=== PATIENT | female | born 1990 | race Caucasian/White ===

== ENCOUNTER 2018-02-26 09:57 | Inpatient (IN) | payer OTHER ==
[2018-02-22 12:49] VITALS: BMI 25.7
[2018-02-26] MEDS ORDERED: ceFAZolin IN SWFI 2 GM/20 ML SYRINGE IVP ONE (10:23)
[2018-02-26] MEDS ORDERED: CITRIC ACID-SODIUM CITRATE 15 ML CUP PO ONE (10:23)
--- NOTE | 2018-02-26 10:31 | P.HPOB ---
History of Present Illness H&P Date: 02/26/18 Chief Complaint: 39-3/7 weeks, previous section declining The patient is a 27-year-old 2 para 1001 admitted at 39-3/7 weeks as established by early ultrasound. She is admitted for repeat low transverse section having undergone a primary low-transverse section for arrest of dilation and descent. She had early care through practice at [facility] and transferred care to our office beginning at approximately 34 weeks with no care between. She has been found to be rubella nonimmune. She also carries a history of narcotic abuse for which she is on chronic maintenance Suboxone therapy. She also has a history of herpes simplex and did begin prophylaxis at 36 weeks. Group B strep status is negative. Obstetrical history: 2 para 1001 with current statistics listed in history of present illness. EDC of 03/02/2018 was established by ultrasound performed through [facility]. Laboratory workup demonstrates a blood type of O+ with a negative antibody screen. Rubella status is nonimmune. The remainder of the laboratory workup was within normal limits. Glucola was within normal limits and group B strep status is negative. Gynecologic history: Unremarkable with no history of any infections to include STDs aside from the aforementioned history of herpes simplex for which she has had no outbreaks during the and has been on maintenance since 36 weeks with Valtrex. Review of Systems Review of systems is confined to history of present illness. Past Medical History Past Medical History: No Reported History History of Any Multi-Drug Resistant Organisms: None Reported Past Surgical History: Section, Tonsillectomy Past Anesthesia/Blood Transfusion Reactions: No Reported Reaction Smoking Status: Current every day smoker - Past Family History Mother Family Medical History: Cancer Additional Family Medical History / Comment(s): BREAST Medications and Allergies Home Medications Medication Instructions Recorded Confirmed Type Buprenorphine HCl/Naloxone HCl 1 film SL DAILY 02/26/18 02/26/18 History [Suboxone 4 mg-1 mg Sl Film] Pnv No.95/Ferrous Fum/Folic AC 1 tab PO DAILY 02/26/18 02/26/18 History [ Multivitamin Tablet] Allergies Allergy/AdvReac Type Severity Reaction Status Date / Time No Known Allergies Allergy Verified 02/26/18 10:15 Exam In general, this is a well-developed, well-nourished white female in no acute distress. Her heart has a regular rhythm and rate without murmur. Her lungs are clear to auscultation bilaterally in all boggs. Her abdomen is gravid, nondistended, has normal active bowel sounds, is soft, nontender, and without any palpable masses aside from uterine fundus. Her extremities are without any cyanosis, clubbing, or edema and are nontender to palpation bilaterally. Digital cervical examination is deferred. Assessment and Plan (1) Previous section Current Visit: Yes Status: Acute Code(s): Z98.891 - HISTORY OF UTERINE SCAR FROM PREVIOUS SURGERY SNOMED Code(s): 382481389 Plan: The patient is admitted for repeat low transverse section. The risks and complications of the procedure have been thoroughly discussed and she has agreed to proceed. She has also been counseled regarding the possible and probable long-term observation of the for potential narcotic withdrawal.
[2018-02-26] MEDS: LACTATED RINGERS 1,000 ML IV SCH ×3 (10:52→23:20)
[2018-02-26 10:59] LABS: Basophils # (A) 0.1 k/uL (0-0.2); Basophils % (A) 0 %; Eosinophils # (A) 0.3 k/uL (0-0.7); Eosinophils % (A) 2 %; HCT 40.1 % (34.0-46.0); Lymphocytes # (A) 2.3 k/uL (1.0-4.8); Lymphocytes % (A) 17 %; MCH 29.7 pg (25.0-35.0); MCHC 32.4 g/dL (31.0-37.0); MCV 91.7 fL (80.0-100.0); Mean Platelet Volume 8.9; Monocytes # (A) 0.5 k/uL (0-1.0); Monocytes % (A) 4 %; Neutrophils # (A) 10.3 k/uL (1.3-7.7); Neutrophils % (A) 75 %; Platelet Count 190 k/uL (150-450); RBC 4.38 m/uL (3.80-5.40); RDW 13.7 % (11.5-15.5); WBC 13.8 k/uL (3.8-10.6)
[2018-02-26] MEDS ORDERED: PROPOFOL 10 MG/ML 20 ML VIAL IV ONE (11:04)
[2018-02-26] MEDS ORDERED: ONDANSETRON 4 MG/2 ML VIAL ONE (11:04)
[2018-02-26] MEDS ORDERED: MORPHINE SULFATE (PF) 0.3 MG/0.3 ML SYR ONE (11:04)
[2018-02-26] MEDS ORDERED: OXYTOCIN 10 UNIT/ML 1 ML VIAL ONE (11:04)
[2018-02-26] MEDS ORDERED: KETOROLAC 30 MG/ML 1 ML VIAL ONE (11:04)
[2018-02-26] MEDS ORDERED: fentaNYL (PF) 50 MCG/ML 2 ML AMP ONE (11:04)
[2018-02-26] MEDS ORDERED: SUCCINYLCHOLINE CHLORIDE 100 MG/5 ML SYR IV ONE (11:04)
[2018-02-26 11:26] LABS: Amphetamine Screen,Urine Not Detected (NotDetected); Barbiturate Screen,Urine Not Detected (NotDetected); Benzodiazepines Screen,Urine Not Detected (NotDetected); Cocaine Screen,Urine Not Detected (NotDetected); Methadone Screen, Urine Not Detected (NotDetected); Opiate Screen,Urine Not Detected (NotDetected); Oxycodone Screen, Urine Not Detected (NotDetected); Phencyclidine Screen,Urine Not Detected (NotDetected); Tricyclic Antidepressant,Urine Not Detected (NotDetected); Urn Cannabinoid Scrn Not Detected (NotDetected)
[2018-02-26] MEDS ORDERED: NALOXONE 0.4 MG/ML 1 ML VIAL IV PRN (11:58)
[2018-02-26] MEDS ORDERED: METOCLOPRAMIDE 5 MG/ML 2 ML VIAL IVP PRN (11:58)
[2018-02-26] MEDS ORDERED: ONDANSETRON 4 MG/2 ML VIAL IVP PRN (11:58)
[2018-02-26] MEDS ORDERED: ZOLPIDEM 5 MG TAB PO PRN (11:58)
[2018-02-26] MEDS ORDERED: ACETAMINOPHEN TAB 325 MG TAB PO PRN ×2 (11:58→12:01)
[2018-02-26] MEDS ORDERED: ACETAMINOPHEN IV (For NPO) 1,000 MG in EMPTY BAG 1 BAG IVPB PRN (11:58)
[2018-02-26] MEDS ORDERED: diphenhydrAMINE 50 MG/ML 1 ML VIAL IVP PRN ×2 (11:58)
[2018-02-26] MEDS ORDERED: diphenhydrAMINE 25 MG CAP PO PRN (11:58)
[2018-02-26] MEDS ORDERED: diphenhydrAMINE 50 MG CAP PO PRN (11:58)
[2018-02-26] MEDS ORDERED: LANOLIN CREAM 5 GM TUBE TOPICAL PRN (12:01)
[2018-02-26] MEDS ORDERED: KETOROLAC 30 MG/ML 1 ML VIAL IVP PRN (12:01)
[2018-02-26] MEDS ORDERED: MEASLES-MUMPS-RUBELLA VACC/PF 12,500 UNIT/0.5 ML VIAL SQ ONE (12:01)
[2018-02-26] MEDS ORDERED: SIMETHICONE 80 MG CHEWABLE PO PRN (12:01)
[2018-02-26] MEDS ORDERED: traMADol 50 MG TAB PO PRN (12:04)
--- NOTE | 2018-02-26 12:11 | P.OP ---
Date of Procedure: 02/26/18 Preoperative Diagnosis: #1. 39-3/7 weeks intrauterine , previous section, declining vaginal trial of labor #2. Rubella nonimmune #3. History of narcotic use, on Suboxone Postoperative Diagnosis: Same Procedure(s) Performed: #1. Repeat low transverse section Anesthesia: GETA (Following a failed spinal anesthetic.) Surgeon: Oscar Levy Cake Maker #1: Edna Munguia Estimated Blood Loss (ml): 800 IV fluids (ml): 1,400 Urine output (ml): 100 Pathology: other (Placenta) Condition: stable Disposition: floor Operative Findings: The patient was taken the operating room where she was delivered of a viable 8 lbs. 7 oz. baby girl with Apgars of 8 at 1 minute and 9 at 5 minutes delivered in the direct occiput anterior position. The placenta was delivered manually, intact, and grossly normal with a grossly normal three-vessel cord. The uterus , tubes, and ovaries were entirely normal to inspection. Description of Procedure: The patient was prepped and draped in usual fashion after spinal anesthesia was administered by the anesthesiologist. The spinal anesthetic failed to provide adequate analgesia and the patient was then set up for general endotracheal anesthesia. Once the anesthesia had been established, a Pfannenstiel incision was made through pre-existing scar and extended into the abdominal cavity without difficulty. The bladder peritoneum was elevated, incised, and reflected distally as it did been previously performed at her previous section. A 2 cm incision was made in the transverse plane of the lower uterine segment to enter the uterus at which time clear fluid was noted. The incision was extended in both directions using the bandage scissors. The head was delivered up and through the incision where the nose and mouth were thoroughly suctioned. The remainder of the was delivered onto the field where the cord was doubly clamped, cut, and the passed for resuscitative measures with weight and Apgars as noted above. A segment of cord was doubly clamped, cut, and set aside should cord gases become necessary. The placenta was delivered manually and intact as noted above. The uterus was exteriorized and the interior cavity of the uterus swept of any remaining placental or membranous fragments. The margins of the incision were grasped with Carter clamps. There was some moderate atony for a period of approximately 1-2 minutes which was ultimately controlled with Pitocin. The incision was closed with 2 stitches of 0 chromic catgut, the first being a running locking stitch followed by a running imbricating stitch, each from margin to margin. Hemostasis appeared to be excellent. The posterior cul-de-sac was suctioned with a guard and the uterine and ovarian findings were entirely normal as noted above. The uterus was replaced within the abdominal cavity and the gutters were swept of any remaining blood, fluid, or clot. The incision was reexamined and noted to be hemostatic. The parietal peritoneum was loosely reapproximated but, as the abdominal muscles were gaping to some extent, they were loosely reapproximated with a large [id number] stitch of 0 chromic catgut. The layer of muscles were examined and made hemostatic with the Bovie. The fascia was closed with 2 running stitches of 0 Vicryl proceeding from the lateral margins to the midpoint. The subcutaneous tissues were irrigated, made hemostatic with the Bovie, but not closed as they were less than 2 cm in depth. The skin was reapproximated with a running subcuticular stitch of 4-0 Vicryl from margin to margin followed by half-inch Steri-Strips placed with Mastisol. Estimated blood loss for the entire case was approximately 800 mL. There were no complications. All sponge, instrument, and needle counts were correct. The patient tolerated the procedure well and proceeded to the recovery room in stable condition. Both mother and are resting comfortably in recovery.
[2018-02-26] MEDS ORDERED: OXYTOCIN 20 UNITS/1000 ML NS 1,000 ML IV SCH (12:15)
[2018-02-26] MEDS ORDERED: MORPHINE SULFATE 4 MG/ML SYRINGE IVP PRN (13:28)
[2018-02-26] MEDS: HYDROmorphone PCA 5 MG/25 ML SYRINGE IV PRN ×2 (15:52→22:17)
[2018-02-26] MEDS: SENNOSIDES-DOCUSATE SODIUM 1 EACH TAB PO SCH (20:46)
[2018-02-27] MEDS: LACTATED RINGERS 1,000 ML IV SCH ×2 (00:38→05:30)
[2018-02-27] MEDS: HYDROmorphone PCA 5 MG/25 ML SYRINGE IV PRN (05:26)
--- NOTE | 2018-02-27 07:21 | P.PN ---
Progress Note - Text 02/27 650am 27-year-old female status post a . She had a spinal anesthetic with Duramorph which was not adequate and was converted to general anesthetic. Postoperatively patient was not comfortable with the pain control . She was started on Dilaudid CLEANING STAFF SUPERVISOR. Doing well this morning no complains of nausea vomiting or itching.
[2018-02-27 07:33] LABS: Basophils % (A) 0 %; Eosinophils # (A) 0.2 k/uL (0-0.7); Eosinophils % (A) 2 %; HCT 35.3 % (34.0-46.0); HGB 11.3 gm/dL (11.4-16.0); Lymphocytes # (A) 1.3 k/uL (1.0-4.8); Lymphocytes % (A) 10 %; MCH 29.6 pg (25.0-35.0); MCHC 32.1 g/dL (31.0-37.0); MCV 92.2 fL (80.0-100.0); Monocytes # (A) 0.4 k/uL (0-1.0); Monocytes % (A) 3 %; Neutrophils # (A) 11.3 k/uL (1.3-7.7); Neutrophils % (A) 84 %; Platelet Count 181 k/uL (150-450); RBC 3.83 m/uL (3.80-5.40); RDW 13.9 % (11.5-15.5); WBC 13.5 k/uL (3.8-10.6)
--- NOTE | 2018-02-27 08:47 | P.PNOBGPC ---
Subjective - Subjective Patient reports: Reports appetite normal, Reports voiding normally, Reports pain well controlled, Reports ambulating normally : doing well Objective - Vital Signs Latest vital signs: Vital Signs Temp Pulse Resp BP Pulse Ox 02/27/18 08:00 98.5 F 86 16 132/74 99 02/27/18 04:00 98.6 F 96 16 137/81 99 02/27/18 02:00 16 02/27/18 00:00 98.3 F 90 16 133/81 99 02/26/18 22:00 16 02/26/18 20:30 98.9 F 93 16 147/83 98 02/26/18 16:00 98.3 F 99 16 141/77 99 02/26/18 14:00 18 140/81 99 02/26/18 13:30 91 18 131/76 100 02/26/18 13:00 80 18 136/72 100 02/26/18 12:45 98.3 F 84 18 129/65 100 02/26/18 12:30 93 18 132/68 99 02/26/18 12:15 86 18 129/63 100 02/26/18 12:00 97.6 F 96 18 132/68 100 02/26/18 10:44 98.7 F 104 H 18 Intake and Output 02/26/18 02/27/18 02/27/18 22:59 06:59 14:59 Output Total 1700 1400 Balance -1700 -1400 Output: Urine 1700 1400 Uretheral ([place]) 1100 Other: # Voids 1 - Exam Extremities: Present: normal Abdomen: Present: normal appearance, soft. Absent: distention, tenderness Incision: Present: normal, dry, intact Uterus: Present: normal, firm (The uterine fundus as tonic and appropriately tender below the umbilicus.) - Labs Labs: Abnormal Lab Results - Last 24 Hours (Table) 02/26/18 02/27/18 Range/Units 10:47 06:52 WBC 13.8 H 13.5 H (3.8-10.6) k/uL Hgb 11.3 L (11.4-16.0) gm/dL Neutrophils # 10.3 H 11.3 H (1.3-7.7) k/uL Assessment and Plan (1) Previous section Current Visit: Yes Status: Acute Code(s): Z98.891 - HISTORY OF UTERINE SCAR FROM PREVIOUS SURGERY SNOMED Code(s): 948294572 (2) S/P section Current Visit: Yes Status: Acute Code(s): Z98.891 - HISTORY OF UTERINE SCAR FROM PREVIOUS SURGERY SNOMED Code(s): 932512964 Plan: Some difficulty was encountered in controlling the patient's pain for the first 24 hours postop. This was ultimately managed with a TEAM PSYCHOLOGIST which has now been discontinued. Our intention was to treat her pain with tramadol which may be insufficient. Should that be the case her pain medication will be switched to [place] 5/325, 1-2 by mouth every 6 hours when necessary pain. I believe it is too early at this time to re-initiate her Suboxone as it will counteract any pain medication she may take. As result, I will likely have her resume her Suboxone once she is discharged home in 2-3 days. I have strongly encouraged her to walk in the halls and I have discontinued the IV fluids while the IV still remains in place. She is otherwise tolerating regular diet. Continue routine postoperative and care.
[2018-02-27] MEDS: SENNOSIDES-DOCUSATE SODIUM 1 EACH TAB PO SCH ×2 (08:52→20:03)
[2018-02-27] MEDS: NICOTINE 21MG/24HR PATCH TRANSDERM SCH (10:17)
[2018-02-27] MEDS: IBUPROFEN 600 MG TAB PO PRN ×3 (10:59→23:25)
[2018-02-27] MEDS ORDERED: HYDROcodone/APAP 5-325MG 1 EACH TAB PO PRN (13:40)
[2018-02-27] MEDS: HYDROcodone/APAP 5-325MG 1 EACH TAB PO PRN ×2 (13:50→20:03)
[2018-02-28] MEDS: HYDROcodone/APAP 5-325MG 1 EACH TAB PO PRN ×4 (02:09→20:19)
[2018-02-28] MEDS: IBUPROFEN 600 MG TAB PO PRN ×4 (05:08→23:14)
--- NOTE | 2018-02-28 07:31 | P.DS ---
Providers Date of admission: 02/26/18 09:57 Expected date of discharge: 02/28/18 Attending physician: Oscar Levy Primary care physician: Stated None Hospital Course: This is a 27 rolled white female 2 para 1001 with previous section, presenting for repeat section at 39-3/7 weeks' gestation, EDC 03/02/2018. Her is remarkable for late care, tobacco smoker , and history of Suboxone. Group B strep cultures negative, rubella status nonimmune, blood type O positive. Please see dictated history and physical for details. Patient was admitted and underwent a repeat low transverse section, giving to a liveborn female infant with scores of 8 and 9 at one and 5 minutes respectively. Infant weighed 3830 g or 8 lbs. 7 oz. She did well intraoperatively, please see dictated operative note for details. Postoperatively the patient has done well. This morning she is voiding, ambulating and passing flatus without difficulty. Vital signs are stable and she is afebrile. Incision is clean and dry, intact, Steri-Strips applied. Extremities are negative for edema. Chest is clear in all boggs. Prescription has been written for her for [place] 5/325 mg to be used 1 every 6 hours as needed for moderate to severe pain. Patient is being discharged home today in good condition. She will follow-up in the office for incision check in 2 weeks. I have reminded her no intercourse , tampons or douching. She will call with any fevers shakes or chills, foul smelling or copious lochia, with the passage of large blood clots, with any pain not alleviated by these products, or indeed with any concerns. [place] infant will follow-up with paper stacker as per recommendations. Patient Condition at Discharge: Good Plan - Discharge Summary Discharge Rx Participant: Yes New Discharge Prescriptions: No Action Buprenorphine HCl/Naloxone HCl [Suboxone 4 mg-1 mg Sl Film] 1 film SL DAILY Pnv No.95/Ferrous Fum/Folic AC [ Multivitamin Tablet] 1 tab PO DAILY Discharge Medication List Buprenorphine HCl/Naloxone HCl [Suboxone 4 mg-1 mg Sl Film] 1 film SL DAILY 01/08 [History] Pnv No.95/Ferrous Fum/Folic AC [ Multivitamin Tablet] 1 tab PO DAILY 01/08 [History] Follow up Appointment(s)/Referral(s): Oscar Levy MD [STAFF PHYSICIAN] - 2 Weeks Discharge Disposition: HOME SELF-CARE
[2018-02-28] MEDS: NICOTINE 21MG/24HR PATCH TRANSDERM SCH (08:10)
[2018-02-28] MEDS: SENNOSIDES-DOCUSATE SODIUM 1 EACH TAB PO SCH ×2 (08:51→20:49)
[2018-03-01 00:23] VITALS: TEMP 98.5
[2018-03-01] MEDS: HYDROcodone/APAP 5-325MG 1 EACH TAB PO PRN ×3 (02:46→15:14)
--- NOTE | 2018-03-01 04:57 | P.DS ---
Providers Date of admission: 02/26/18 09:57 Expected date of discharge: 03/01/18 Attending physician: Oscar Levy Primary care physician: Stated None Hospital Course: Please see fully dictated discharge summary yesterday. Patient elected to stay one additional day because infant was not discharged from the nursery. No other changes noted. Patient will follow-up with Dr. Levy in the office in 2 weeks. Patient Condition at Discharge: Good Plan - Discharge Summary Discharge Rx Participant: Yes New Discharge Prescriptions: No Action Buprenorphine HCl/Naloxone HCl [Suboxone 4 mg-1 mg Sl Film] 1 film SL DAILY Pnv No.95/Ferrous Fum/Folic AC [ Multivitamin Tablet] 1 tab PO DAILY Discharge Medication List Buprenorphine HCl/Naloxone HCl [Suboxone 4 mg-1 mg Sl Film] 1 film SL DAILY 01/08 [History] Pnv No.95/Ferrous Fum/Folic AC [ Multivitamin Tablet] 1 tab PO DAILY 01/08 [History] Follow up Appointment(s)/Referral(s): Oscar Levy MD [STAFF PHYSICIAN] - 2 Weeks Discharge Disposition: HOME SELF-CARE
[2018-03-01] MEDS: IBUPROFEN 600 MG TAB PO PRN ×2 (06:21→11:50)
[2018-03-01] MEDS: SENNOSIDES-DOCUSATE SODIUM 1 EACH TAB PO SCH ×2 (09:20→16:00)
[2018-03-01] MEDS: NICOTINE 21MG/24HR PATCH TRANSDERM SCH (09:23)
[2018-03-01 09:42] VITALS: BP 134/77; PULSE 77; RESP 18
== END 2018-03-01 16:50 | disposition home or self-care (01) | DRG 765 ==
LOC: 4FBP 09:57
PROVIDERS: ADMIT Obstetrics & Gynecology; ATTEND Obstetrics & Gynecology
PROC: 10D00Z1 Extraction of Products of Conception, Low, Open Approach (ICD-10-PCS; principal; 2018-02-26 12:00)
DX: O34.211 Maternal care for low transverse scar from previous cesarean delivery (principal); O98.32 Other infections with a predominantly sexual mode of transmission complicating childbirth; O99.334 Smoking (tobacco) complicating childbirth; F17.210 Nicotine dependence, cigarettes, uncomplicated; O99.62 Diseases of the digestive system complicating childbirth; K21.9 Gastro-esophageal reflux disease without esophagitis; F11.11 Opioid abuse, in remission; A60.00 Herpesviral infection of urogenital system, unspecified; Z37.0 Single live birth; Z3A.39 39 weeks gestation of pregnancy; Z79.899 Other long term (current) drug therapy
CPT/HCPCS: 80306; 85025; 86850; 86900; 86901; 88307; 90707